=== PATIENT | male | born 1955 ===

== ENCOUNTER 2023-02-12 09:27 | Outpatient (CLI) | payer MEDICARE ==
--- NOTE | 2023-02-12 11:56 | XRAY Report ---
PROCEDURE: Foot 3 View RT INDICATIONS: RIGHT FOOT PAIN TECHNIQUE: 3 views of the foot were acquired. COMPARISON: None. FINDINGS: Bones: No fractures or dislocations. No suspicious bony lesions. First IP joint degenerative arth ritis. Soft tissues: No suspicious soft tissue calcifications or masses. IMPRESSION: Great toe IP joint degenerative arthritis. No acute bony abnormality. Reviewed by: Lemuel Franco MD on 02/12/2023 11:55 AM PDT Approved by: Lemuel Franco MD on 02/12/2023 11:55 AM PDT Station ID: [id number]
== END 2023-02-12 23:59 | disposition home or self-care (01) ==
LOC: DI.S 09:27
PROVIDERS: ATTEND Emergency Medicine
DX: M19.071 Primary osteoarthritis, right ankle and foot (principal)

== ENCOUNTER 2023-05-22 08:51 | Outpatient (CLI) | payer MEDICARE ==
[2023-05-22 14:52] LABS: BASOPHILS # (AUTO) 0.1 10^3/uL (0.0-0.1); EOSINOPHILS # (AUTO) 0.2 10^3/uL (0.0-0.7); EOSINOPHILS % (AUTO) 4.7 %; HCT - HEMATOCRIT 42.9 % (42.0-52.0); HGB - HEMOGLOBIN 13.6 g/dL (14.0-18.0); LYMPHOCYTES # (AUTO) 1.5 10^3/uL (1.5-3.5); LYMPHOCYTES % (AUTO) 31.3 %; MEAN CORPUSCULAR HGB CONC 31.7 g/dL (32.0-36.0); MEAN CORPUSCULAR VOLUME 94.7 fL (80.0-94.0); MEAN PLATELET VOLUME 10.5 fL (7.4-11.4); MONOCYTES # (AUTO) 0.7 10^3/uL (0.0-1.0); MONOCYTES % (AUTO) 13.3 %; NEUTROPHILS # (AUTO) 2.4 10^3/uL (1.5-6.6); NEUTROPHILS % (AUTO) 49.5 %; PLT - PLATELET COUNT 214 10^3/uL (130-450); RED BLOOD COUNT 4.53 10^6/uL (4.70-6.10); RED CELL DISTRIBUTION WIDTH 13.2 % (12.0-15.0); WHITE BLOOD COUNT 4.9 x10^3/uL (4.8-10.8)
[2023-05-22 15:07] LABS: ALBUMIN 4.3 g/dL (3.2-5.5); ALBUMIN/GLOBULIN RATIO 1.6 (1.0-2.2); ALKALINE PHOSPHATASE 47 IU/L (42-121); ALT ALANINE AMINOTRANSFERASE 20 IU/L (10-60); AST ASPARTATE AMINOTRANSFERASE 21 IU/L (10-42); BILIRUBIN,TOTAL 0.6 mg/dL (0.2-1.0); BUN - BLOOD UREA NITROGEN 20 mg/dL (6-20); CALCIUM 9.7 mg/dL (8.5-10.3); CARBON DIOXIDE - CO2 29 mmol/L (21-32); CHLORIDE 109 mmol/L (101-111); CHOL/HDL RATIO 2.4 (<5.0); CHOLESTEROL 92 mg/dL; CREATININE 0.7 mg/dL (0.6-1.3); GFR - MDRD 111 (>89); GLUCOSE 92 mg/dL (74-104); HDL CHOLESTEROL 38 mg/dL; LDL CHOLESTEROL,CALCULATED 37 mg/dL; POTASSIUM 4.3 mmol/L (3.5-4.5); SODIUM 142 mmol/L (135-145); TRIGLYCERIDES 84 mg/dL (48-352); VLDL CHOLESTEROL 17 mg/dL
[2023-05-22 15:11] LABS: THYROID STIMULATING HORMONE 0.31 uIU/mL (0.34-5.60)
== END 2023-05-22 08:52 | disposition home or self-care (01) ==
LOC: LAB.S 08:51
PROVIDERS: ATTEND Registered Nurse
DX: Z13.220 Encounter for screening for lipoid disorders (principal); Z79.899 Other long term (current) drug therapy; Z12.5 Encounter for screening for malignant neoplasm of prostate; Z13.29 Encounter for screening for other suspected endocrine disorder
CPT/HCPCS: 36415; 80053; 80061; 84439; 84443; 85025; G0103; 83721; 84153

== ENCOUNTER 2023-08-03 13:56 | Outpatient (CLI) | payer MEDICARE ==
[2023-08-03 20:28] LABS: THYROID STIMULATING HORMONE 1.17 uIU/mL (0.34-5.60)
== END 2023-08-03 13:57 | disposition home or self-care (01) ==
LOC: LAB.S 13:56
PROVIDERS: ATTEND Registered Nurse
DX: E03.9 Hypothyroidism, unspecified (principal)
CPT/HCPCS: 36415; 84443

== ENCOUNTER 2023-11-26 08:48 | Outpatient (CLI) | payer MEDICARE | END 2023-11-26 08:49 | disposition home or self-care (01) | LOC: LAB.S 08:48 | PROVIDERS: ATTEND Registered Nurse | DX: R97.20 Elevated prostate specific antigen [PSA] (principal) | CPT/HCPCS: 36415; 84153 ==